=== PATIENT | female | born 1935 | race Caucasian/White ===

== ENCOUNTER 2016-04-10 07:22 | Inpatient (IN) ==
--- NOTE | 2016-04-09 20:57 | Discharge Summary ---
<Mariela Sterling - Last Filed: 04/10/16 13:50> - Discharge Diagnosis (1) Arthritis of knee, right Priority: Primary Status: Acute (2) Hyperlipidemia Status: Chronic Qualifiers: Hyperlipidemia type: unspecified Qualified Code(s): E78.5 - Hyperlipidemia , unspecified (3) Thyroid disease Status: Chronic - Discharge Medications Home Medications: Aspirin Enteric Coated [Aspirin EC] 325 mg PO DAILY #21 tablet. 04/09/16 [Rx] OxyCODONE Immed Rel [Roxicodone 5 MG] 5 - 10 mg PO Q6HR PRN #40 tablet 04/09/16 [Rx] Aspirin 81 mg PO DAILY 04/10/16 [History] Atorvastatin Calcium [Lipitor] 20 mg PO HS 04/10/16 [History] Celecoxib [Celebrex] 200 mg PO DAILY 04/10/16 [History] Latanoprost [Xalatan] 2 drop BOTH EYES QPM 04/10/16 [History] Levothyroxine [Synthroid] 50 mcg PO 0630 04/10/16 [History] Meclizine HCl [Verticalm] 25 mg PO Q6H PRN 04/10/16 [History] Multivit-Min/FA/Lutein/Zeaxant [Icaps Mv Tablet] 2 tab PO DAILY 04/10/16 [ History] Allergies/Adverse Reactions: Allergies No Known Allergies Allergy (Verified 04/10/16 08:34) Primary care physician: Juno Grant MD - Patient Status Disposition: Transfer Inpatient Rehab Fac Condition: Good - Discharge Instructions Follow Up With: Aaron Contreras MD [Partnered Physician] - 05/09/16 8:30 am Mariela Sterling, PAC [Physician County Program Technician] - 04/20/16 8:00 am Juno Grant MD [Primary Care Provider] - Additional Instructions: Discharge Instructions: Total Knee Replacement Please call [facility] ([phone]), your Primary Care Physician, or report to the Emergency Room if you have any of the following symptoms: Nausea, vomiting, fever greater that 101.5, swelling, chest pain, shortness of breath, increased pain/redness/drainage/odor for your incision site, numbness/ tingling, or any other concerning symptoms. ACTIVITY:Weight-bearing as tolerated. You may progress off support (cruthches or walker) as tolerated. MEDICATIONS: Upon discharge resume your home medications. Take all the medications as prescribed. Take a stool softener if taking narcotic pain medications. Stool softeners are only effective if you drink enough fluids. Drink 6-8 glass of water or fluids a day, unless this is not allowed for another health problem. Despite using stool softeners, if you haven't had a bowel movement in 3 days, please switch to a gentle laxative. Gentle laxatives are sold over the counter. You should have a bowel movement within 24 hours, if not call the office. You will be discharged from the hospital with a prescription for pain medication. You are encouraged to decrease the use of narcotic pain medication as tolerated. Should you require a refill, please call the office. [facility] prescribes narcotic pain medication for only 4-6 weeks after surgery. If you require pain medication beyond this time periord, you may be referred to your Primary Care Physician or to the Pain Clinic for further evaluation. Plan ahead for refills on pain medication as many narcotics either need to be picked up at the office or mailed. It is best to call 48-72 hours in advance of needing a prescription refill so you don't run out of medication. To help control the post-operative pain, you may take NSAIDs (Aleve,Advil, Motrin, ibuprofen, naprosyn) or Tylenol as prescribed on the bottle in addition to the pain medication. ANTICOAGULATION (blood thinners): Continue your Aspirin, Lovenox or Coumadin as prescribed to help prevent a blood clot in the leg or in the lungs. As long as your incision remains dry and you tolerate the NSAIDs (Aleve, Advil, Motrin, ibuprofen, naprosyn), it is OK to use the NSAIDS while you are taking your anticoagulation medication. Should your incision start to drain, stop the NSAID and contact our office. Common symptoms of blood clot in the legs include: localized pain, swelling, calf tenderness, redness or discoloration of the skin. Blood clot in the lung symptoms include: shortness of breath, rapid pulse, sweating, and chest pain that worsens with deep breathing, coughing up blood, lightheadedness, feelings of anxiety. If you experience any of these symptoms notify your physician immediately, go to the emergency room, or if having trouble breathing, call 911. WOUND CARE: Leave the dressing on for 7 days. You may change the dressing if it becomes saturated greater than 50%. You can shower but not a tub bath or submerge your incision in water. Wash your hands with antibacterial soap, rinse and dry prior to any wound care. If you have paresh the visiting nurse or rehab facility can remove the stapes 10-14 days [address] surgery [address] steri- strips across the wound. Leave the steri-strips in place until they fall off on their won. You may let water from the shower run on top of the steri-stirips. If you do not have a visiting nurse or rehab facility, you will need to return to the office at 10-14 days for the paresh to be removed. FOLLOW-UP: Please follow up with your surgeon in the orthopedic clinic in 4 weeks from the day of surgery. If you have paresh that need to be removed, you will need to come back to the office in 10-14 days from the day of surgery. - Hospital Course Hospital course: Ms. Woo is a 80 year old female - Time Spent with Patient Total time spent providing and/or coordinating discharge services: <Aaron Contreras - Last Filed: 04/13/16 08:17> Date of Encounter: 04/13/16 Time of Encounter: 08:17 - Discharge Diagnosis (1) Hyperlipidemia Priority: Secondary Status: Chronic Qualifiers: Qualified Code(s): E78.5 - Hyperlipidemia, unspecified (2) Thyroid disease Priority: Secondary Status: Chronic (3) Arthritis of knee, right Priority: Primary Status: Acute (4) Acute blood loss anemia Priority: Primary Status: Acute Primary care physician: Juno Grant MD - Patient Status Functional capacity at discharge: uses cane/walker Overall status at discharge: patient is progressing back to baseline - Hospital Course Hospital course: Ms. Woo is a 80 year old female The patient had an uneventful postoperative course. They received antibiotics and physical therapy and were discharged in stable condition. There will follow -up in the office in 2 weeks. Aspirin DVT prophylaxis - Time Spent with Patient Total time spent providing and/or coordinating discharge services:
[2016-04-10] MEDS ORDERED: CeFAZolin Pre 2,000 MG/100 ML 2,000 MG/100 ML BAG IVPB ONE (07:43)
--- NOTE | 2016-04-10 07:52 | History & Physical Report ---
Date of Encounter: 04/10/16 Time of Encounter: 07:52 24 Hour HP Update - Instructions Instructions: If the History and Physical is less than 30 days old and was completed prior to A.M. admission and or procedure and has NOT been updated on calendar day of procedure please complete this update prior to performing procedure. - Update Patient reports changes in Medical Condition: No Changes in assessment/condition: No Changes in Medication: No Preop tests/diagnostics Reviewed: Yes Surgery Remains Indicated: Yes Consent for Planned Operative Procedure(s) Verified: Yes - Pre-Operative Checklist Preoperative Checklist Indicated: No Prophylactic Antibiotic Ordered: Yes Is VTE Prophylaxis Indicated?: Yes
[2016-04-10] MEDS: Ringers Solution, Lactated 1,000 ML IVC SCH ×2 (07:58→10:03)
[2016-04-10] MEDS ORDERED: *HR* Labetalol 100 MG/20 ML MDV IVP PRN (08:11)
[2016-04-10] MEDS ORDERED: Ondansetron 4 MG/2 ML VIAL IVP ONE (08:11)
--- NOTE | 2016-04-10 08:14 | Anesthesia Evaluation PreOp ---
Date of Encounter: 04/10/16 Time of Encounter: 08:08 - Past History Planned Operation: r tka Cardiac History: Hyperlipidemia Pulmonary History: Denies Any Significant HX MICROWAVE TECHNICIAN History: Other (cataracts, glaucoma) Other Medical History: Thyroid Anesthesia History: No Prior Anesthetic Complications, Past Anesthesia (btl, l tsr) Alcohol Use: none Drug use: none Medications and Allergies Aspirin Enteric Coated [Aspirin EC] 325 mg PO DAILY #21 tablet. 04/09/16 [Rx] OxyCODONE Immed Rel [Roxicodone 5 MG] 5 - 10 mg PO Q6HR PRN #40 tablet 04/09/16 [Rx] Allergies No Known Allergies Allergy (Verified 04/10/16 07:43) - Meds/Allergy Pre-op Review Medications Reviewed: Yes Allergies Reviewed: Yes Beta Blockers on Current Med List: No Anesthesia Results - Labs Laboratory Tests 03/17/16 03/17/16 03/17/16 13:39 13:39 13:39 Hgb 12.1 Hct 37.1 Plt Count 223 PT 11.7 INR 1.1 APTT 33.4 Sodium 138 Potassium 4.4 Creatinine 0.73 - Imaging EKG: report reviewed (sr, first deg avb, rvcd) Anesthesia Exam O2 Sat Height 1.68 m Height 1.68 m Height 1.68 m Weight 75.75 kg Weight 75.75 kg Weight 75.75 kg O2 Sat by Pulse Oximetry 97 Vital Signs Temp Pulse Resp BP Pulse Ox 98.4 F 72 18 142/74 97 04/10/16 07:42 04/10/16 07:42 04/10/16 07:42 04/10/16 07:42 04/10/16 07:42 Height: 1.68 Weight: 75 NPO (# of Hours): >8 - HEENT Pupil (Motor): Pupils equal, EOMI Mallampati: I Teeth: Normal Oral Opening: Greater than 3 - MICROWAVE TECHNICIAN LOC: Oriented MICROWAVE TECHNICIAN Motor: Normal RUE, Normal LUE, Normal RLE, Normal LLE, Normal Face MICROWAVE TECHNICIAN Sensory: Normal: RUE, LUE, RLE, LLE, Face - Cardiac Rhythm: Regular Murmur: None - Pulmonary Breath Sounds: bilateral Clear Respiratory Effort: Symmetrical Anesthesia Assess/Plan ASA Score: 3 (age >70) Modified Dave Scale for Level of Consciousness: Cooperative, oriented, and tranquil Anesthetic Plan: General, Regional Monitoring Plan: Standard Monitors Recovery Plan: PACU
[2016-04-10] MEDS ORDERED: CloNIDine Patch 0.1 MG PATCH (WEEKLY) TD SCH (08:15)
[2016-04-10] MEDS ORDERED: *HR* FentaNYL (PF) 100 MCG/2 ML VIAL ONE ×2 (08:20→09:37)
[2016-04-10] MEDS ORDERED: *HR* Propofol 200 MG/20 ML VIAL IVP ONE (08:20)
[2016-04-10] MEDS ORDERED: Lidocaine -MPF 2% 2 ML VIAL ONE ×2 (08:23→09:37)
[2016-04-10] MEDS ORDERED: Tetracaine/PF 20 MG/2 ML AMPUL SPINA ONE (08:54)
[2016-04-10] MEDS ORDERED: EPHEDrine 50 MG/ML VIAL ONE (09:26)
--- NOTE | 2016-04-10 09:29 | Anesthesia Procedures ---
Date of Encounter: 04/10/16 Time of Encounter: 09:06 Procedures: Anesthesia - Nerve Block Procedure Date: 04/10/16 Time: 09:06 Surgical Procedure: right total knee Checklist: Correct Patient Identifier, Correct procedure, History checked Correct side: Right Monitor Applied: EKG, BP, Pulse Oximetry Sedation: Fentanyl (mcg): 100 Indication: Post Op Analgesia Block Type: Femoral Catheter placed: No Sterile Technique: Yes Ultrasound used: Yes Anatomy identified: Yes Visual spread of Local: Yes Blood on Needle Aspiration: No Smooth Injection of Local: Yes Pain with Injection of Local: No Prep: Chlorhexadine Needle: 22 x 50 mm Stimuplex Local: Other (40ml .5 % bup, 6ml 2% lido, 2ml tetracaine) Volume (cc): 48 Number of Attempts: 1 Complications: None/effective block Vitals: vss, block per request of surgeon
[2016-04-10] MEDS ORDERED: Dexamethasone 4 MG/ML VIAL ONE (09:38)
[2016-04-10] MEDS ORDERED: Ondansetron 4 MG/2 ML VIAL ONE (09:38)
--- NOTE | 2016-04-10 09:58 | Orthopedic Operative Note ---
Date of procedure: 04/10/16 Pre-op diagnosis: Right knee arthritis Post-op diagnosis: same Procedure: Procedure: Right Total knee replacement Estimated blood loss: 200 cc Hardware: Arthrex Femur: 5 Tibia: 5 PS insert: 16 Patella: 37 Exam Under anesthesia: Valgus alignment loss of full extension 5 degrees Procedural Notes: Grade 4 arthritic changes lateral compartment grade 3 arthritic changes medial compartment patellofemoral joint Operative procedure: The patient was brought to the operating room and placed on the operating room table. After general anesthesia was administered the operative knee was examined. Findings were noted in the exam under anesthesia. The operative extremity was prepped and draped in sterile surgical fashion. The patient received IV antibiotics prior to skin incision. A standard midline incision was made centered over the patella. The incision was made through the skin and subcutaneous tissue. A medial parapatellar tendon approach was performed. Care was taken to preserve tissue along the medial aspect of the patella. And to protect the patella tendon. The deep MCL was released off the medial tibia. The infra patella fat pad was excised. Knee was brought into flexion. Patient noted to have Grade 4 arthritic changes lateral compartment grade 3 arthritic changes medial compartment patellofemoral joint. The entry hole was made for the intramedullary femoral guide. The guide was seated in 6 degrees of valgus. Anterior cut was made followed by the distal cut. The ACL the PCL the medial and the lateral menisci were excised. The tibia was subluxed forward. The entry hole was made for the intramedullary tibial guide. Guide was seated to resect 2 mm off the more abnormal side. The knee was brought into flexion the distal femur was sized 5. The femoral guide was seated , the anterior cut was made followed by the posterior condylar cut, followed by the chamfer cuts. The finishing guide was seated the box cut was made and the lug holes were drilled. The tibia was sized 5, the tibial tray was seated and prepared with the large drill followed by the fin cutter. Trial reduction revealed full extension no varus valgus instability with the appropriate 16 PS Mary. The patella was everted and cut was made at the level of the insertion of the quadriceps and patella tendon. The patella was sized 37 the guide was seated and the lug holes are drilled. Trial reduction revealed excellent patella tracking. All trial components were removed all bony surfaces were irrigated. The tibia was cemented first followed by the femur. The 16 PS Mary was seated and the knee was brought into full extension. The patella was cemented and held in place with the patellar holding clamp. After the cement had hardened, the knee sat for 2 minutes with a Betadine saline solution. The knee was then irrigated out with 2 L of pulse irrigation. The extensor mechanism was closed with #2 FiberWire suture and #2 PDS suture. The subcutaneous tissue was then irrigated and closed deep with #1 PDS suture superficially with 0 PDS suture and skin was closed with skin paresh and Dermabond. The patient was then placed in a sterile dressing and a postoperative brace extubated and transferred to recovery room in stable condition. Anesthesia: KERRI Surgeon: Aaron Contreras Condition: stable Disposition: PACU
[2016-04-10] MEDS: *HR* HYDROmorphone (PF) 1 MG/ML SYRINGE IVP PRN ×3 (10:28→23:45)
[2016-04-10 10:47] LABS: Hematocrit 31.9 % (35.3-44.9); Hemoglobin 10.4 g/dL (11.5-15.4)
--- NOTE | 2016-04-10 10:53 | Anesthesia Evaluation Post Op ---
Date of Encounter: 04/10/16 Time of Encounter: 10:50 - Vital Signs Vital Signs: vss - Lungs Lungs: Clear Ascult./Percussion - Airway Airway: Non-obstructed - Cardiovascular Regular Rate, Baseline Rhythm - Mental Status Mental Status: Alert & Oriented, Answers Appropriately - Pain Pain Scale: 3 Pain Scale used: Numeric (1 - 10) - Nausea Vomiting Nausea Vomiting: Not Present - Hydration Hydration: Able to void - Discharge PostOp Status: Transfer Patient to floor
[2016-04-10] MEDS ORDERED: MOM Conc 10 ML UD.LIQ PO PRN (11:14)
[2016-04-10] MEDS ORDERED: Sennosides 8.6 MG TABLET PO PRN (11:14)
[2016-04-10] MEDS ORDERED: Ringers Solution, Lactated 1,000 ML IVC SCH (11:14)
[2016-04-10] MEDS ORDERED: Temazepam 15 MG CAPSULE PO PRN (11:14)
[2016-04-10] MEDS ORDERED: Acetaminophen 325 MG TABLET PO PRN (11:14)
[2016-04-10] MEDS ORDERED: *HR* OxyCODONE Immed Rel 5 MG TABLET PO PRN (11:14)
[2016-04-10] MEDS ORDERED: Naloxone 0.4 MG/ML INJ IVP PRN (11:14)
[2016-04-10] MEDS: *HR* OxyCODONE Immed Rel 5 MG TABLET PO PRN ×3 (12:12→22:16)
[2016-04-10] MEDS: ceFAZolin 2,000 MG in D5% in Water 100 ML IVPB SCH ×2 (15:31→23:46)
[2016-04-10] MEDS: *HR* Enoxaparin 30 MG/0.3 ML SYRINGE SQ SCH (17:40)
[2016-04-10] MEDS: Latanoprost 2.5 ML BOTTLE BOTH EYES SCH (17:40)
[2016-04-10] MEDS: Ondansetron 4 MG/2 ML VIAL IVP PRN (17:44)
[2016-04-10] MEDS ORDERED: *HR* Enoxaparin 30 MG/0.3 ML SYRINGE SQ SCH (18:00)
[2016-04-11] MEDS: *HR* OxyCODONE Immed Rel 5 MG TABLET PO PRN ×2 (02:22→16:02)
[2016-04-11] MEDS: *HR* HYDROmorphone (PF) 1 MG/ML SYRINGE IVP PRN (05:39)
[2016-04-11] MEDS: *HR* Enoxaparin 30 MG/0.3 ML SYRINGE SQ SCH ×2 (05:40→16:02)
[2016-04-11] MEDS: Ondansetron 4 MG/2 ML VIAL IVP PRN (06:05)
[2016-04-11 06:09] LABS: Hematocrit 27.7 % (35.3-44.9); Hemoglobin 9.2 g/dL (11.5-15.4)
[2016-04-11 06:30] LABS: BUN/Creatinine Ratio 21 (6-26); Blood Urea Nitrogen 14 mg/dL (7-20); Calcium 8.6 mg/dL (8.6-10.8); Carbon Dioxide 27 mEq/L (19-29); Chloride 99 mEq/L (98-109); Glucose 130 mg/dL (70-99); Osmolality,Calculated 276 (280-300); Potassium 4.1 mEq/L (3.5-4.5); Sodium 132 mEq/L (136-145); eGFR For African Americans > 60 (> 60); eGFR For Non-African Americans > 60 (> 60)
--- NOTE | 2016-04-11 06:41 | Orthopedics Progress Note ---
Date of Encounter: 04/11/16 Time of Encounter: 06:41 - Assessment and Plan (1) Hyperlipidemia Current Visit: Yes Status: Chronic Qualifiers: Qualified Code(s): E78.5 - Hyperlipidemia, unspecified (2) Thyroid disease Current Visit: Yes Status: Chronic (3) Arthritis of knee, right Current Visit: Yes Status: Acute (4) Acute blood loss anemia Current Visit: Yes Status: Acute Subjective Interval history: Patient was seen this morning doing well without complaints. Afebrile vital signs stable. Operative extremity: Neurovascularly intact Dressing clean dry and intact Calves nontender Assessment and plan: Continue with postoperative care Hemoglobin 9.2 Objective Vital signs: Vital Signs Temp Pulse Resp BP Pulse Ox 04/11/16 04:35 99.1 F 76 16 145/71 91 L 04/11/16 00:42 99.4 F 74 15 121/69 94 L 04/10/16 20:35 98.8 F 79 16 130/73 93 L 04/10/16 15:37 97.8 F 72 18 145/77 95 04/10/16 14:15 97.5 F L 79 16 141/75 04/10/16 13:10 97.6 F 77 13 138/80 95 04/10/16 12:15 97.8 F 76 12 143/81 97 04/10/16 11:44 97.8 F 77 12 156/86 94 L 04/10/16 11:16 95 04/10/16 11:15 97.7 F 73 13 142/80 95 04/10/16 10:53 97.2 F L 71 16 141/76 96 04/10/16 10:43 73 14 129/82 96 04/10/16 10:33 65 12 128/75 95 04/10/16 10:23 97.4 F L 72 12 129/76 97 04/10/16 09:02 67 164/92 96 04/10/16 07:42 98.4 F 72 18 142/74 97 Intake and Output 04/10/16 04/10/16 04/11/16 15:59 23:59 07:59 Intake Total 1999 / 1999 600 / 600 Output Total 200 / 200 1200 / 1200 Balance 1800 / 1800 600 / 600 -1200 / -1200 Intake: IV Fluids 1100 / 1100 100 / 100 Lactated Ringers 1,000 ML 1000 / 1000 @ 75 mls/hr IVC .[id number] MICHEAL Rx#:[id number] Ancef 2,000 MG In 100 / 100 Dextrose 5% 100 ML @ 200 mls/hr IVPB Q8HR MICHEAL Rx#: [id number] Ancef Premix 2,000 MG/100 100 / 100 ML 2,000 mg In 100 ml @ 200 mls/hr IVPB PREOP ONE Rx#:[id number] Oral 900 / 900 500 / 500 Output: Urine 1200 / 1200 Estimated Blood Loss 200 / 200 Other: Meal Dinner Percent of Meal Consumed 100% - Labs CBC & BMP: 04/11/16 05:22 04/11/16 05:22 Labs: Abnormal lab results Hgb 9.2 g/dL (11.5-15.4) L 04/11/16 05:22 Hct 27.7 % (35.3-44.9) L 04/11/16 05:22 Sodium 132 mEq/L (136-145) L 04/11/16 05:22 Glucose 130 mg/dL (70-99) H 04/11/16 05:22 Calculated Osmolality 276 (280-300) L 04/11/16 05:22 - VTE Documentation of Mechanical Device: Venous foot pump, device Consult Discharge Plan - Plan Referrals: Juno Grant MD [Primary Care Provider] -
[2016-04-11] MEDS: Aspirin 81 MG TAB.CHEW PO SCH (09:19)
[2016-04-11] MEDS: Celecoxib 200 MG CAPSULE PO SCH (09:19)
[2016-04-11] MEDS: [UNRECOGNIZED DRUG - MIXTURE] PO SCH (09:20)
[2016-04-11] MEDS: Latanoprost 2.5 ML BOTTLE BOTH EYES SCH (16:04)
[2016-04-12] MEDS: *HR* Enoxaparin 30 MG/0.3 ML SYRINGE SQ SCH ×2 (06:10→16:47)
[2016-04-12 07:01] LABS: Hematocrit 27.6 % (35.3-44.9); Hemoglobin 9.2 g/dL (11.5-15.4)
[2016-04-12 07:20] LABS: BUN/Creatinine Ratio 20 (6-26); Blood Urea Nitrogen 12 mg/dL (7-20); Calcium 8.7 mg/dL (8.6-10.8); Carbon Dioxide 23 mEq/L (19-29); Chloride 99 mEq/L (98-109); Glucose 121 mg/dL (70-99); Osmolality,Calculated 273 (280-300); Potassium 4.1 mEq/L (3.5-4.5); Sodium 131 mEq/L (136-145); eGFR For African Americans > 60 (> 60); eGFR For Non-African Americans > 60 (> 60)
[2016-04-12] MEDS: Aspirin 81 MG TAB.CHEW PO SCH (08:17)
[2016-04-12] MEDS: *HR* OxyCODONE Immed Rel 5 MG TABLET PO PRN ×2 (08:17→19:28)
[2016-04-12] MEDS: Celecoxib 200 MG CAPSULE PO SCH (08:17)
[2016-04-12] MEDS: [UNRECOGNIZED DRUG - MIXTURE] PO SCH (08:18)
--- NOTE | 2016-04-12 09:09 | Orthopedics Progress Note ---
Date of Encounter: 04/12/16 Time of Encounter: 09:09 - Assessment and Plan (1) Hyperlipidemia Current Visit: Yes Status: Chronic Qualifiers: Qualified Code(s): E78.5 - Hyperlipidemia, unspecified (2) Thyroid disease Current Visit: Yes Status: Chronic (3) Arthritis of knee, right Current Visit: Yes Status: Acute (4) Acute blood loss anemia Current Visit: Yes Status: Acute Subjective Interval history: Patient was seen this morning doing well without complaints. Afebrile vital signs stable. Operative extremity: Neurovascularly intact Dressing clean dry and intact Calves nontender Assessment and plan: Continue with postoperative care Hemoglobin 9.2 Objective Vital signs: Vital Signs Temp Pulse Resp BP Pulse Ox 04/12/16 07:09 98.7 F 76 16 135/69 93 L 04/12/16 00:00 99.1 F 82 17 136/71 92 L 04/11/16 15:54 98.6 F 75 18 133/75 95 04/11/16 11:14 98.3 F 69 18 143/81 94 L Intake and Output 04/11/16 04/12/16 04/12/16 23:59 07:59 15:59 Intake Total 675 / 675 Output Total 750 / 750 Balance -75 / -75 Intake: Oral 675 / 675 Output: Urine 750 / 750 - Labs CBC & BMP: 04/12/16 06:05 04/12/16 06:05 Labs: Abnormal lab results Hgb 9.2 g/dL (11.5-15.4) L 04/12/16 06:05 Hct 27.6 % (35.3-44.9) L 04/12/16 06:05 Sodium 131 mEq/L (136-145) L 04/12/16 06:05 Glucose 121 mg/dL (70-99) H 04/12/16 06:05 Calculated Osmolality 273 (280-300) L 04/12/16 06:05 - VTE Documentation of Mechanical Device: Venous foot pump, device Consult Discharge Plan - Plan Referrals: Aaron Contreras MD [Partnered Physician] - 05/09/16 8:30 am Mariela Sterling PAC [Physician Application Project Leader] - 04/20/16 8:00 am Juno Grant MD [Primary Care Provider] -
[2016-04-12] MEDS: Latanoprost 2.5 ML BOTTLE BOTH EYES SCH (16:46)
[2016-04-13] MEDS: *HR* Enoxaparin 30 MG/0.3 ML SYRINGE SQ SCH (05:10)
[2016-04-13 06:47] VITALS: BP 136/73
[2016-04-13] MEDS: *HR* OxyCODONE Immed Rel 5 MG TABLET PO PRN (08:11)
[2016-04-13] MEDS: Celecoxib 200 MG CAPSULE PO SCH (08:11)
[2016-04-13] MEDS: Aspirin 81 MG TAB.CHEW PO SCH (08:11)
[2016-04-13] MEDS: [UNRECOGNIZED DRUG - MIXTURE] PO SCH (08:12)
--- NOTE | 2016-04-13 08:18 | Orthopedics Progress Note ---
Date of Encounter: 04/13/16 Time of Encounter: 06:00 - Assessment and Plan (1) Hyperlipidemia Current Visit: Yes Status: Chronic Qualifiers: Qualified Code(s): E78.5 - Hyperlipidemia, unspecified (2) Thyroid disease Current Visit: Yes Status: Chronic (3) Arthritis of knee, right Current Visit: Yes Status: Acute (4) Acute blood loss anemia Current Visit: Yes Status: Acute Subjective Interval history: Patient was seen this morning doing well without complaints. Afebrile vital signs stable. Operative extremity: Neurovascularly intact Dressing clean dry and intact Calves nontender Assessment and plan: Continue with postoperative care Discharge today Objective Vital signs: Vital Signs Temp Pulse Resp BP Pulse Ox 04/13/16 06:47 98.3 F 87 16 136/73 98 04/13/16 00:00 98.5 F 85 17 138/75 96 04/12/16 19:00 98.8 F 92 18 129/70 92 L 04/12/16 15:31 98.3 F 83 16 123/68 96 04/12/16 11:04 97.8 F 80 16 107/66 95 Intake and Output 04/12/16 04/13/16 04/13/16 23:59 07:59 15:59 Intake Total 320 / 320 100 / 100 Balance 320 / 320 100 / 100 Intake: IV Fluids 100 / 100 Oral 220 / 220 100 / 100 Other: Meal Dinner Percent of Meal Consumed 100% # Voids 1 1 - Labs CBC & BMP: 04/12/16 06:05 04/12/16 06:05 Labs: Abnormal lab results Hgb 9.2 g/dL (11.5-15.4) L 04/12/16 06:05 Hct 27.6 % (35.3-44.9) L 04/12/16 06:05 Sodium 131 mEq/L (136-145) L 04/12/16 06:05 Glucose 121 mg/dL (70-99) H 04/12/16 06:05 Calculated Osmolality 273 (280-300) L 04/12/16 06:05 - VTE Documentation of Mechanical Device: Venous foot pump, device Consult Discharge Plan - Plan Additional Instructions: Discharge Instructions: Total Knee Replacement Please call [facility] ([phone]), your Primary Care Physician, or report to the Emergency Room if you have any of the following symptoms: Nausea, vomiting, fever greater that 101.5, swelling, chest pain, shortness of breath, increased pain/redness/drainage/odor for your incision site, numbness/ tingling, or any other concerning symptoms. ACTIVITY:Weight-bearing as tolerated. You may progress off support (cruthches or walker) as tolerated. MEDICATIONS: Upon discharge resume your home medications. Take all the medications as prescribed. Take a stool softener if taking narcotic pain medications. Stool softeners are only effective if you drink enough fluids. Drink 6-8 glass of water or fluids a day, unless this is not allowed for another health problem. Despite using stool softeners, if you haven't had a bowel movement in 3 days, please switch to a gentle laxative. Gentle laxatives are sold over the counter. You should have a bowel movement within 24 hours, if not call the office. You will be discharged from the hospital with a prescription for pain medication. You are encouraged to decrease the use of narcotic pain medication as tolerated. Should you require a refill, please call the office. [facility] prescribes narcotic pain medication for only 4-6 weeks after surgery. If you require pain medication beyond this time periord, you may be referred to your Primary Care Physician or to the Pain Clinic for further evaluation. Plan ahead for refills on pain medication as many narcotics either need to be picked up at the office or mailed. It is best to call 48-72 hours in advance of needing a prescription refill so you don't run out of medication. To help control the post-operative pain, you may take NSAIDs (Aleve,Advil, Motrin, ibuprofen, naprosyn) or Tylenol as prescribed on the bottle in addition to the pain medication. ANTICOAGULATION (blood thinners): Continue your Aspirin, Lovenox or Coumadin as prescribed to help prevent a blood clot in the leg or in the lungs. As long as your incision remains dry and you tolerate the NSAIDs (Aleve, Advil, Motrin, ibuprofen, naprosyn), it is OK to use the NSAIDS while you are taking your anticoagulation medication. Should your incision start to drain, stop the NSAID and contact our office. Common symptoms of blood clot in the legs include: localized pain, swelling, calf tenderness, redness or discoloration of the skin. Blood clot in the lung symptoms include: shortness of breath, rapid pulse, sweating, and chest pain that worsens with deep breathing, coughing up blood, lightheadedness, feelings of anxiety. If you experience any of these symptoms notify your physician immediately, go to the emergency room, or if having trouble breathing, call 911. WOUND CARE: Leave the dressing on for 7 days. You may change the dressing if it becomes saturated greater than 50%. You can shower but not a tub bath or submerge your incision in water. Wash your hands with antibacterial soap, rinse and dry prior to any wound care. If you have paresh the visiting nurse or rehab facility can remove the stapes 10-14 [address] surgery [address] steri- strips across the wound. Leave the steri-strips in place until they fall off on their won. You may let water from the shower run on top of the steri-stirips. If you do not have a visiting nurse or rehab facility, you will need to return to the office at 10-14 days for the paresh to be removed. FOLLOW-UP: Please follow up with your surgeon in the orthopedic clinic in 4 weeks from the day of surgery. If you have paresh that need to be removed, you will need to come back to the office in 10-14 days from the day of surgery. Referrals: Aaron Contreras MD [Partnered Physician] - 05/09/16 8:30 am Mariela Sterling PAC [Physician Superior Court Judge] - 04/20/16 8:00 am Juno Grant MD [Primary Care Provider] -
== END 2016-04-13 10:10 | DRG 470 ==
LOC: SAMDAY 07:22 → 3NENU 11:13
PROVIDERS: ADMIT Orthopaedic Surgery; ATTEND Orthopaedic Surgery